=== PATIENT | female | born 1955 | race Caucasian/White ===

== ENCOUNTER 2016-12-22 15:08 | Emergency (ER) | payer MEDICARE, OTHER ==
[2016-12-22 15:09] VITALS: BP 200/98; PULSE 79; RESP 15; TEMP 98.8; O2SAT 98
[2016-12-22 15:18] VITALS: BP 197/85
--- NOTE | 2016-12-22 15:20 | PD ---
Physical Exam Time Seen by Provider: 15:20 Narrative 61yo F c/o sharp shooting pain to R side of head started a couple hours ago. Denies hx SARMIENTO. Derick fever, vomiting. Denies focal deficits or weakness. Patient seen in triage. VS reviewed. Patient awaiting bed placement. Data Data Last Documented VS Vital Signs Date Time Temp Pulse Resp B/P (MAP) Pulse Ox O2 Delivery O2 Flow Rate FiO2 12/22/16 15:09 98.8 79 15 200/98 (132) 98 MDM Supervised Visit with SHELTON: Izabel Schrader Dec 22, 2016 15:20
[2016-12-22 15:41] VITALS: BP 179/85
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
[2016-12-22] MEDS ORDERED: TRAM50TA PO (16:09)
[2016-12-22] MEDS ORDERED: HYDR25TA5 PO (16:09)
--- NOTE | 2016-12-22 17:07 | RADRPT ---
EXAM DATE/TIME: 12/22/2016 16:43 [facility] COMPARISON: No previous studies available for comparison. INDICATIONS : Patient complains of headache. RADIATION DOSE: 56.81 CTDIvol (mGy) MEDICAL HISTORY : None SURGICAL HISTORY : None. ENCOUNTER: Initial ACUITY: 1 day PAIN SCALE: 0/10 LOCATION: cranial TECHNIQUE: Multiple contiguous axial images were obtained of the head. Using automated exposure control and adj ustment of the mA and/or kV according to patient size, radiation dose was kept as low as reasonably a chievable to obtain optimal diagnostic quality images. DICOM format image data is available electro nically for review and comparison. FINDINGS: CEREBRUM: The ventricles are normal for age. No evidence of midline shift, mass lesion, hemorrhage or acute in farction. No extra-axial fluid collections are seen. POSTERIOR FOSSA: The cerebellum and brainstem are intact. The 4th ventricle is midline. The cerebellopontine angle i s unremarkable. EXTRACRANIAL: The visualized portion of the orbits is intact. SKULL: The calvaria is intact. No evidence of skull fracture. CONCLUSION: Normal examination. Carlos Lawrence MD on December 22, 2016 at 17:03 Board Certified Radiologist. This report was verified electronically.
[2016-12-22] MEDS ORDERED: KETOROLAC TROMETHAMINE 60 MG/2 ML (IM) VIAL IM ONE (17:15)
== END 2016-12-22 17:46 | disposition home or self-care (01) ==
LOC: NEPK 15:08
DX: R51 Headache (principal); M19.90 Unspecified osteoarthritis, unspecified site; I10 Essential (primary) hypertension; Z87.820 Personal history of traumatic brain injury; Z79.899 Other long term (current) drug therapy
CPT/HCPCS: 70450; 96372; 99285; J1885

== ENCOUNTER 2017-01-07 16:35 | Emergency (ER) | payer MEDICARE ==
[~2017-01-07] VITALS: Ht 157.5 cm; Wt 60.0 kg
[~2017-01-07 16:35] MED LIST: HYDR25TA5 PO; TRAM50TA PO
[2017-01-07 16:37] VITALS: BP 180/78; PULSE 78; RESP 20; TEMP 97.8; O2SAT 99
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
[2017-01-07 17:58] LABS: AUTOMATED NEUTROPHIL # 3.5 TH/MM3 (1.8-7.7); BASOPHIL % 0.5 % (0.0-2.0); EOSINOPHIL # 0.2 TH/MM3 (0-0.4); EOSINOPHIL % 3.3 % (0.0-4.0); HEMATOCRIT 39.3 % (35.0-46.0); HEMO FLAGS DIFF FINAL; LYMPH % 22.5 % (9.0-44.0); LYMPHOCYTE # 1.3 TH/MM3 (1.0-4.8); MEAN CELL VOLUME 97.4 FL (80.0-100.0); MEAN CORPUSCULAR HEMOGLOBIN 32.8 PG (27.0-34.0); MEAN CORPUSCULAR HGB CONC 33.7 % (32.0-36.0); NEUT % 62.7 % (16.0-70.0); PLATELET COUNT 197 TH/MM3 (150-450); RED BLOOD COUNT 4.04 MIL/MM3 (4.00-5.30); RED CELL DISTRIBUTION WIDTH 12.9 % (11.6-17.2); WHITE BLOOD COUNT 5.6 TH/MM3 (4.0-11.0)
[2017-01-07 18:06] LABS: APTT (PATIENT) 26.4 SEC (24.3-30.1); INTERNATIONAL NORMALIZED RATIO 0.9 RATIO
[2017-01-07 18:13] LABS: BICARBONATE 30.3 MEQ/L (21.0-32.0); POTASSIUM 3.6 MEQ/L (3.5-5.1)
--- NOTE | 2017-01-07 18:43 | RADRPT ---
EXAM DATE/TIME: 01/07/2017 18:09 [facility] COMPARISON: No previous studies available for comparison. INDICATIONS : Left leg swelling. MEDICAL HISTORY : Arthritis. Hypertension. SURGICAL HISTORY : L:eft hip surgery. Bilateral rotator cuff surgery. Neck surgery. ENCOUNTER: Initial ACUITY: 3 days PAIN SCORE: 5/10 LOCATION: Left leg. TECHNIQUE: Venous ultrasound of the leg was performed from the inguinal ligament to the proximal calf. Real-kong e, color Doppler and spectral tracing, compression and augmentation techniques were used. FINDINGS: There is normal compressibility of the deep venous system from the inguinal region to the proximal ca lf. No echogenic clot is seen in the lumen of the common femoral, femoral, popliteal, and posterior tibial veins. There is a normal response of the venous system to proximal and distal augmentation an d respiration. CONCLUSION: No DVT of the left lower extremity. Carlos Oro MD on January 07, 2017 at 18:41 Board Certified Radiologist. This report was verified electronically.
--- NOTE | 2017-01-07 18:57 | RADRPT ---
EXAM DATE/TIME: 01/07/2017 18:39 [facility] COMPARISON: No previous studies available for comparison. INDICATIONS : Left femur pain and swelling. MEDICAL HISTORY : Arthritis. Hypertension. SURGICAL HISTORY : Left femur surgery. ENCOUNTER: Initial ACUITY: 3 days PAIN SCORE: 5/10 LOCATION: Left femur. FINDINGS: No fracture seen of the left femur. No bone destruction. There has been previous left hip arthroplast y. Lateral plate with screws and cerclage wires seen of the proximal and midshaft. No evidence of cynthia dware failure or loosening. There is mild chronic appearing hypertrophic bone at the greater trochanter. CONCLUSION: Surgical changes as above. No acute abnormality demonstrated. Carlos Oro MD on January 07, 2017 at 18:54 Board Certified Radiologist. This report was verified electronically.
== END 2017-01-07 19:17 | disposition home or self-care (01) ==
LOC: NEPD 16:35
DX: S76.912A Strain of unspecified muscles, fascia and tendons at thigh level, left thigh, initial encounter (principal); M19.90 Unspecified osteoarthritis, unspecified site; I10 Essential (primary) hypertension; X50.0XXA Overexertion from strenuous movement or load, initial encounter; Z79.899 Other long term (current) drug therapy
CPT/HCPCS: 73552; 80048; 82550; 82552; 85025; 85610; 85730; 93971; 99285